=== PATIENT | female | born 1940 | race Caucasian/White ===

== ENCOUNTER 2018-12-09 08:46 | Day surgery (SDC) | payer MEDICARE ==
[2018-12-09] VITALS (8 sets, daily range): BP systolic 137–155; BP diastolic 47–81
[2018-12-09 09:36] LABS: HEMATOCRIT 35.3 % (36-48); MEAN CORPUSCULAR HEMOGLOBIN 29.5 pg (27.0-33.0); MEAN CORPUSCULAR HGB CONC 33.1 g/dL (32.0-36.0); MEAN CORPUSCULAR VOLUME 88.9 fL (79-99); NUCLEATED RED BLOOD CELLS 0.1 % (0.0-0.19); PLATELET COUNT (AUTO) 302 K/uL (130-400); RED BLOOD CELL COUNT(AUTO) 3.97 MIL/uL (4.00-5.50); RED CELL DISTRIBUTION WIDTH 13.6 % (11.0-15.5); WHITE BLOOD COUNT (AUTO) 6.2 K/uL (4.8-10.8)
[2018-12-09] MEDS ORDERED: ISOVUE-M 200 20 ML VIAL IT ONE (09:36)
[2018-12-09 09:47] LABS: CREATININE 1.3 mg/dL (0.5-1.5); POTASSIUM 4.6 mmol/L (3.5-5.1)
[2018-12-09 09:49] LABS: PARTIAL THROMBOPLASTIN TIME 28.8 SEC (26.3-35.5); PROTHROMBIN TIME 10.5 SEC (9.6-11.6)
--- NOTE | 2018-12-09 10:05 | NUR ---
CT LUMBAR MYELOGRAM PROCEDURE PERFORMED BY DR RODRIGUEZ. PUNCTURE SITE LUMBAR SPINE. PATIENT TOLERATED PROCEDURE WELL. CONTRAST INJECTION OF ISOVUEW 200MG/20ML GIVE AT 1007. END OF PROCEDURE AT 1010. SPINAL NEEDLE REMOVED AND BAND AID APPLIED WITH NO BLEEDING NTED. REPORT GIVEN TO XOCHITL ROGERS AND PATIENT TRANSPORTED TO DAY PATIENT VIA BED. AAO X3 WITH NO C/O PAIN.
== END 2018-12-09 14:10 | disposition home or self-care (01) ==
LOC: DAH 08:46
PROVIDERS: ATTEND Family Medicine
DX: M54.17 Radiculopathy, lumbosacral region (principal); I10 Essential (primary) hypertension; E78.5 Hyperlipidemia, unspecified; Z79.899 Other long term (current) drug therapy; Z79.84 Long term (current) use of oral hypoglycemic drugs; Z79.01 Long term (current) use of anticoagulants; Z90.710 Acquired absence of both cervix and uterus; Z98.890 Other specified postprocedural states; Z82.49 Family history of ischemic heart disease and other diseases of the circulatory system; Z83.3 Family history of diabetes mellitus
CPT/HCPCS: 36415; 62305; 72132; 80048; 85027; 85610; 85730; A4606; Q9966